=== PATIENT | female | born 1965 | race Two or more races ===

== ENCOUNTER 2018-05-06 06:40 | Emergency (ER) | payer OTHER ==
[~2018-05-06] VITALS: Ht 167.6 cm; Wt 82.6 kg
[~2018-05-06 06:40] MED LIST: COZAAR25 MG; HUMALOG MIX 75/23 ML
[2018-05-06] MEDS ORDERED: LOSARTAN POTAS100 MG PO (07:18)
[2018-05-06] MEDS ORDERED: FORTAMET1000 MG PO (07:19)
== END 2018-05-06 13:06 | disposition home or self-care (01) ==
LOC: ER 06:40
DX: K52.89 Other specified noninfective gastroenteritis and colitis (principal); E86.0 Dehydration

== ENCOUNTER 2019-06-12 07:12 | Outpatient (CLI) | payer OTHER ==
[~2019-06-12 07:12] MED LIST changes: +FORTAMET1000 MG PO; +LOSARTAN POTAS100 MG PO
== END 2019-06-12 07:25 | disposition home or self-care (01) ==
LOC: SONOGRAMA 07:12
DX: E04.1 Nontoxic single thyroid nodule (principal)

== ENCOUNTER 2019-06-20 09:42 | Outpatient (CLI) | payer OTHER | END 2019-06-20 10:19 | disposition home or self-care (01) | LOC: NUCLEAR 09:42 | DX: M79.604 Pain in right leg (principal); M79.605 Pain in left leg; I73.9 Peripheral vascular disease, unspecified; E11.65 Type 2 diabetes mellitus with hyperglycemia ==

== ENCOUNTER 2019-06-23 07:38 | Outpatient (CLI) | payer OTHER | END 2019-06-23 07:54 | disposition home or self-care (01) | LOC: NUCLEAR 07:38 | DX: M79.604 Pain in right leg (principal); M79.605 Pain in left leg; I73.9 Peripheral vascular disease, unspecified; I87.2 Venous insufficiency (chronic) (peripheral); E11.65 Type 2 diabetes mellitus with hyperglycemia ==

== ENCOUNTER 2022-07-25 17:31 | Emergency (ER) | payer OTHER ==
[~2022-07-25] VITALS: Ht 167.6 cm; Wt 91.6 kg
== END 2022-07-25 23:47 | disposition home or self-care (01) ==
LOC: ER 17:31
DX: R10.9 Unspecified abdominal pain (principal); R10.2 Pelvic and perineal pain; N39.0 Urinary tract infection, site not specified

== ENCOUNTER 2022-12-15 06:43 | Emergency (ER) | payer OTHER ==
[~2022-12-15] VITALS: Ht 167.6 cm; Wt 87.1 kg
[2022-12-15] MEDS ORDERED: PROZAC10 MG PO (07:05)
== END 2022-12-15 13:30 | disposition home or self-care (01) ==
LOC: ER 06:43
PROVIDERS: General Practice
DX: R10.31 Right lower quadrant pain (principal); I10 Essential (primary) hypertension; K57.30 Diverticulosis of large intestine without perforation or abscess without bleeding; Z20.822 Contact with and (suspected) exposure to COVID-19

== ENCOUNTER 2022-12-20 00:06 | Emergency (ER) | payer OTHER ==
[~2022-12-20] VITALS: Ht 167.6 cm; Wt 87.1 kg
[~2022-12-20 00:06] MED LIST changes: +PROZAC10 MG PO
[2022-12-20] MEDS ORDERED: CLONAZEPAM0.5 MG PO (00:20)
[2022-12-20] MEDS ORDERED: KETO10TA2 PO (07:25)
[2022-12-20] MEDS ORDERED: GRALISE600 MG PO (07:25)
[2022-12-20] MEDS ORDERED: NORFLEX100MG PO (07:25)
== END 2022-12-20 07:37 ==
LOC: ER 00:06
PROVIDERS: General Practice
DX: M54.50 Low back pain, unspecified (principal); E11.9 Type 2 diabetes mellitus without complications; Z79.4 Long term (current) use of insulin

== ENCOUNTER 2022-12-23 15:44 | Emergency (ER) | payer OTHER ==
[~2022-12-23] VITALS: Ht 167.6 cm; Wt 83.0 kg
[~2022-12-23 15:44] MED LIST changes: +CLONAZEPAM0.5 MG PO; +GRALISE600 MG PO; +KETO10TA2 PO; +NORFLEX100MG PO
== END 2022-12-23 21:18 | disposition home or self-care (01) ==
LOC: ER 15:44
DX: M54.50 Low back pain, unspecified (principal); E11.9 Type 2 diabetes mellitus without complications; Z79.4 Long term (current) use of insulin; I10 Essential (primary) hypertension

== ENCOUNTER 2023-07-12 06:02 | Emergency (ER) | payer OTHER ==
[~2023-07-12] VITALS: Ht 162.6 cm; Wt 86.6 kg
[2023-07-12] MEDS ORDERED: hydrOXYzine PAMOATE 50 MG CAPSULE PO ONE (08:45)
[2023-07-12 09:23] LABS: HEMATOCRIT 39.1 % (36.0-45.00); HEMOGLOBIN 12.9 g/dL (12.0-15.00); MEAN CELL VOLUME 85.5 fL (80.00-100.00); MEAN CORPUSCULAR HEMOGLOBIN 28.1 pg (27.00-32.0); MEAN CORPUSCULAR HGB CONC 32.9 g/dl (32.0-36.0); PLATELET COUNT 231 K/uL (150-450); RED BLOOD COUNT 4.57 M/uL (4.00-6.00)
[2023-07-12 09:48] LABS: PH,URINE 5.5 (5.0-8.0); URINE APPEARANCE Clear; URINE BILIRRUBIN Negative (NEGATIVE); URINE BLOOD Negative; URINE COLOR Yellow; URINE LEUKOCYTE Negative; URINE NITRATE Negative; URINE PROTEIN Negative (NEGATIVE); URINE UROBILINOGEN 0.2 E.U./dl
[2023-07-12 09:53] LABS: URINE BACTERIA 1056.7 uL (0.0-1933); URINE EPITHELIAL CELLS 11.2 uL (0.0-38.8); URINE RBC 2.1 uL (0.0-20.8); URINE WBC 22.2 uL (0.0-23.2)
[2023-07-12 10:33] LABS: URINE GLUCOSE >=1000 MG/DL (NEGATIVE)
== END 2023-07-12 13:09 | disposition home or self-care (01) ==
LOC: ER 06:03
PROVIDERS: Emergency Medicine
DX: R10.2 Pelvic and perineal pain (principal); E11.9 Type 2 diabetes mellitus without complications; Z79.4 Long term (current) use of insulin; I10 Essential (primary) hypertension

== ENCOUNTER 2025-01-09 06:10 | Emergency (ER) | payer OTHER ==
[~2025-01-09] VITALS: Ht 167.6 cm; Wt 88.5 kg
[2025-01-09] MEDS ORDERED: HUMALOG100 UNIT/1 (06:23)
[2025-01-09] MEDS ORDERED: DEXAMETHASONE SODIUM PHOSPHATE 4 MG/ML VIAL IM STA (07:24)
[2025-01-09] MEDS ORDERED: KETOROLAC TROMETHAMINE 60 MG VIAL IM STA (07:24)
[2025-01-09] MEDS ORDERED: OxyCODONE HCL 5 MG TABLET (ROXICODONE) PO STA (07:25)
[2025-01-09] MEDS ORDERED: ORPHENADRINE CITRATE 30 MG/ML AMPUL IM STA (10:53)
== END 2025-01-09 11:06 | disposition home or self-care (01) ==
LOC: ER 06:10
DX: M54.9 Dorsalgia, unspecified (principal); M79.7 Fibromyalgia